=== PATIENT | female | born 1955 | race Two or more races ===

== ENCOUNTER → 2018-11-03 | Outpatient (CLI) | payer OTHER, MEDICARE ==
[~2018-11-03] MED LIST: ASPI-864; BARIUM SULFATE 176 GM SUSP.RECON ONE; DILT-26; EZ-HD SUSPENSION(BARIUM SULFATE 340GM) PO ONE; METO-396
== END | disposition home or self-care (01) ==
LOC: RAD 08:48
DX: R13.10 Dysphagia, unspecified (principal); R11.10 Vomiting, unspecified
CPT/HCPCS: 74249

== ENCOUNTER 2020-03-07 12:14 | Inpatient (IN) | payer OTHER, MEDICARE ==
[~2020-03-07] VITALS: Ht 165.1 cm; Wt 114.8 kg
[~2020-03-07 12:14] MED LIST changes: -BARIUM SULFATE 176 GM SUSP.RECON ONE; -EZ-HD SUSPENSION(BARIUM SULFATE 340GM) PO ONE
[2020-03-07] MEDS ORDERED: ASPIRIN 81MG TABLET PO ONE (13:00)
[2020-03-07 13:23] LABS: BASOPHILS % 0.6 % (0.0-2.0); EOSINOPHILS % 1.6 % (0.0-5.0); HEMOGLOBIN. 14.3 g/dL (12.0-16.0); LYMPHOCYTES % 27.5 % (20.0-50.0); MEAN CORPUSCULAR HEMOGLOBIN 30.1 pg (28.0-32.0); MEAN CORPUSCULAR VOLUME 90.2 fL (81.0-99.0); MEAN PLATELET VOLUME 9.6 fl (7.4-10.4); MONOCYTES % 7.9 % (2.0-8.0); NEUTROPHILS % 62.4 % (40.0-76.0); PLATELET 202 x1000/uL (130-400); RED BLOOD CELL COUNT 4.76 mill/uL (4.2-5.4); RED CELL DISTRIBUTION WIDTH 14.8 % (11.6-14.6)
[2020-03-07 13:28] LABS: CHLORIDE 104 mEq/L (98-107)
[2020-03-07 13:33] LABS: INR 1.1; PARTIAL THROMBOPLASTIN TIME 27.1 sec (23.4-31.0); PROTHROMBIN TIME 11.2 sec (9.6-11.0)
[2020-03-07] MEDS ORDERED: TRAZODONE HCL 50MG TABLET PO PRN (16:00)
[2020-03-07] MEDS ORDERED: ONDANSETRON HCL 4MG/2ML INJ IV PRN (16:00)
[2020-03-07] MEDS ORDERED: CLONIDINE 0.1MG TABLET PO PRN (16:00)
[2020-03-07] MEDS ORDERED: ACETAMINOPHEN 325MG TABLET PO PRN (16:00)
[2020-03-07] MEDS ORDERED: REGADENOSON 0.4 MG/5 ML IV NR (17:00)
[2020-03-07] MEDS: ISOSORBIDE MONONITRATE 30MG TABLET SR 24HR PO SCH (18:03)
[2020-03-07] MEDS: AMLODIPINE 5MG TABLET PO SCH (21:00)
[2020-03-07 21:16] VITALS: BP 130/76
[2020-03-07] MEDS: HEPARIN 5000 UNITS/ML VIAL SUBCUT SCH (23:55)
[2020-03-08] VITALS: BP 127/69
[2020-03-08] MEDS ORDERED: MELO-106 PO (01:57)
[2020-03-08] MEDS ORDERED: METH-612 PO (01:57)
[2020-03-08] MEDS ORDERED: HYDR100T26 PO (01:57)
[2020-03-08] MEDS ORDERED: MULT-1247 PO (01:57)
[2020-03-08] MEDS ORDERED: NEBI5TAB3 PO (01:57)
[2020-03-08] MEDS ORDERED: LOSA100T32 PO (01:57)
[2020-03-08] MEDS ORDERED: HYDR-459 PO (01:57)
[2020-03-08] MEDS ORDERED: OMEP20CA14 PO (01:57)
[2020-03-08] MEDS ORDERED: CLON0.1T PO (01:57)
[2020-03-08] MEDS ORDERED: FURO-152 PO (01:57)
[2020-03-08] MEDS ORDERED: ONDA8TAB59 PO (01:57)
[2020-03-08 04:10] VITALS: BP 120/62
[2020-03-08 06:42] LABS: BASOPHILS % 0.3 % (0.0-2.0); EOSINOPHILS % 2.6 % (0.0-5.0); HEMATOCRIT. 37.2 % (36.0-48.0); HEMOGLOBIN. 12.4 g/dL (12.0-16.0); MEAN CORPUSCULAR HEMOGLOBIN 29.8 pg (28.0-32.0); MEAN CORPUSCULAR VOLUME 89.5 fL (81.0-99.0); MEAN PLATELET VOLUME 10.1 fl (7.4-10.4); NEUTROPHILS % 59.1 % (40.0-76.0); PLATELET 177 x1000/uL (130-400); RED BLOOD CELL COUNT 4.16 mill/uL (4.2-5.4); RED CELL DISTRIBUTION WIDTH 15.1 % (11.6-14.6)
[2020-03-08 08:00] VITALS: BP 126/62
[2020-03-08 09:12] LABS: CHLORIDE 108 mEq/L (98-107)
[2020-03-08] MEDS: HEPARIN 5000 UNITS/ML VIAL SUBCUT SCH (09:13)
[2020-03-08] MEDS: AMLODIPINE 5MG TABLET PO SCH (09:13)
[2020-03-08] MEDS: ISOSORBIDE MONONITRATE 30MG TABLET SR 24HR PO SCH (09:13)
[2020-03-08 09:20] LABS: HDL CHOLESTEROL 56 mg/dL (40-59); LDL CHOLESTEROL 96 mg/dL (5-100)
[2020-03-08] MEDS ORDERED: REGADENOSON 0.4 MG/5 ML IV ONE (13:38)
== END 2020-03-08 18:30 | disposition home or self-care (01) | DRG 309 ==
LOC: ER 12:14 → 8WST 14:02 → EDBEDREQ 14:05 → ENRESERV 19:52
PROVIDERS: ADMIT Internal Medicine; ATTEND Internal Medicine
DX: I47.1 Supraventricular tachycardia (principal); Z68.41 Body mass index [BMI] 40.0-44.9, adult; B19.20 Unspecified viral hepatitis C without hepatic coma; E66.01 Morbid (severe) obesity due to excess calories; E78.00 Pure hypercholesterolemia, unspecified; E78.5 Hyperlipidemia, unspecified; M19.90 Unspecified osteoarthritis, unspecified site; Z79.899 Other long term (current) drug therapy
CPT/HCPCS: 36415; 71045; 78452; 80053; 80061; 83036; 83735; 83880; 84484; 85025; 93005; 93306; 93923; 93970; 97162; 97166; 99285; A9500; J1644; J2785

== ENCOUNTER 2021-04-22 18:04 | Emergency (ER) | payer MEDICARE, OTHER ==
[~2021-04-22] VITALS: Ht 162.6 cm; Wt 91.0 kg
[~2021-04-22 18:04] MED LIST changes: +CLON0.1T PO; +FURO-152 PO; +HYDR-459 PO; +HYDR100T26 PO; +LOSA100T32 PO; +MELO-106 PO; +METH-774 PO; +MULT-1247 PO; +NEBI5TAB3 PO; +OMEP20CA14 PO; +ONDA8TAB59 PO
[2021-04-22 18:08] VITALS: BP 148/90
== END 2021-04-22 23:56 | disposition home or self-care (01) ==
LOC: ER 18:04
DX: M25.561 Pain in right knee (principal); Z96.651 Presence of right artificial knee joint; Z96.698 Presence of other orthopedic joint implants; E78.00 Pure hypercholesterolemia, unspecified; I10 Essential (primary) hypertension; Z79.899 Other long term (current) drug therapy
CPT/HCPCS: 73700; 99284

== ENCOUNTER 2023-03-05 18:12 | Emergency (ER) | payer MEDICARE ==
[~2023-03-05] VITALS: Ht 160 cm; Wt 116.6 kg
[~2023-03-05 18:12] MED LIST changes: -LOSA100T32 PO; +LOSA100T33 PO
[2023-03-05 18:14] VITALS: PULSE 124
[2023-03-05 18:20] VITALS: BP 192/89; RESP 16; TEMP 98.2; O2SAT 100
[2023-03-05 18:46] LABS: BASOPHILS % 0.3 % (0.0-2.0); EOSINOPHILS % 3.2 % (0.0-5.0); HEMATOCRIT. 43.2 % (36.0-48.0); HEMOGLOBIN. 13.9 g/dL (12.0-16.0); LYMPHOCYTES % 23.8 % (20.0-50.0); MEAN CORPUSCULAR HEMOGLOBIN 27.8 pg (28.0-32.0); MEAN CORPUSCULAR HGB CONC 32.2 g/dL (31.0-37.0); MEAN CORPUSCULAR VOLUME 86.1 fL (81.0-99.0); MEAN PLATELET VOLUME 9.5 fl (7.4-10.4); MONOCYTES % 6.7 % (2.0-8.0); PLATELET 253 x1000/uL (130-400); RED BLOOD CELL COUNT 5.02 mill/uL (4.2-5.4); RED CELL DISTRIBUTION WIDTH 16.3 % (11.6-14.6); WHITE BLOOD COUNT 14.1 x1000/uL (4.5-11.0)
[2023-03-05 18:58] LABS: CHLORIDE 109 mEq/L (98-107); INDEX HEMOLYSI 1 (1-3); INDEX ICTERIC 1 (1-4); INDEX LIPEMIC 1 (1-3); POTASSIUM 3.6 mEq/L (3.5-5.1); SODIUM 140 mEq/L (136-145)
[2023-03-05 19:10] LABS: PROTHROMBIN TIME 10.8 sec (9.6-11.0)
[2023-03-05 19:11] LABS: ALANINE AMINOTRANSFERASE 24 IU/L (13-61); ALBUMIN 3.8 g/dL (3.4-5.0); ASPARTATE AMINOTRANSFERASE 20 IU/L (15-37); BILIRUBIN TOTAL 0.5 mg/dL (0.1-1.0); CALCIUM 9.4 mg/dL (8.5-10.1); CARBON DIOXIDE 26 mEq/L (21-32); GLUCOSE 123 mg/dL (70-105); NT PRO B-TYPE NATRIURETIC PEP 172 pg/mL (5-125); PROTEIN TOTAL 8.4 g/dL (6.0-8.3); TROPONIN I HIGH SENSITIVITY 6 ng/L (<54); UREA NITROGEN BLOOD 12 mg/dL (7-21)
[2023-03-05] MEDS ORDERED: NITROGLYCERIN 0.4MG TABLET SL SL PRN (19:45)
[2023-03-05] MEDS ORDERED: ASPIRIN 81MG TABLET PO ONE (19:45)
== END 2023-03-05 21:57 | disposition left against medical advice (07) ==
LOC: ER 18:12 → EDBEDREQ 20:27 → ER 21:57
DX: I20.0 Unstable angina (principal); E78.00 Pure hypercholesterolemia, unspecified; I11.9 Hypertensive heart disease without heart failure; Z96.653 Presence of artificial knee joint, bilateral; Z88.6 Allergy status to analgesic agent; Z88.8 Allergy status to other drugs, medicaments and biological substances
CPT/HCPCS: 36415; 71045; 80053; 83880; 84484; 85025; 93005; 99285